=== PATIENT | female | born 1970 | race Caucasian/White ===

== ENCOUNTER 2023-09-01 13:27 | Emergency (ER) | payer OTHER ==
[~2023-09-01] VITALS: Ht 167.6 cm; Wt 108.0 kg
[2023-09-01 13:34] VITALS: O2SAT 100
[2023-09-01] MEDS ORDERED: IBUPROFEN 600 MG TAB PO STA (13:51)
[2023-09-01] MEDS ORDERED: TRAMADOL HCL 50 MG TAB PO ONE (14:00)
[2023-09-01] MEDS ORDERED: ULTRAM 50MG50 MG PO (15:18)
[2023-09-01] MEDS ORDERED: NAPROXEN250 MG PO (15:18)
== END 2023-09-01 15:29 | disposition home or self-care (01) ==
LOC: ER 13:33
DX: S83.8X2A Sprain of other specified parts of left knee, initial encounter (principal); X50.1XXA Overexertion from prolonged static or awkward postures, initial encounter; Y92.89 Other specified places as the place of occurrence of the external cause; Z98.84 Bariatric surgery status
CPT/HCPCS: 99284